=== PATIENT | male | born 1985 | race Caucasian/White ===

== ENCOUNTER 2021-11-03 14:39 | Emergency (ER) | payer OTHER ==
[2021-11-03 15:07] VITALS: TEMP 98; BMI 27.5
[2021-11-03] MEDS ORDERED: SODIUM CHLORIDE 0.9% 1000 ML INFUS.BAG IV ONE (15:17)
[2021-11-03] MEDS ORDERED: FAMOTIDINE 20 MG/50 ML IVPB 20 MG/50 ML MG IVPB ONE ×2 (15:17→15:36)
[2021-11-03] MEDS ORDERED: ACETAMINOPHEN 1000 MG/100 ML VIAL IVPB ONE (15:17)
[2021-11-03] MEDS ORDERED: ACETAMINOPHEN INJECTION 100 ML IVPB ONE (15:36)
[2021-11-03 16:22] LABS: BILIRUBIN,TOTAL 0.5 mg/dl (0.2-1); CALCIUM 9.4 mg/dl (8.5-10); CREATININE 0.9 mg/dl (0.55-1.3); MAGNESIUM 1.9 mg/dL (1.8-2.4)
[2021-11-03 17:20] VITALS: BP 120/70; PULSE 75
[2021-11-03 17:44] LABS: BASO % 0.5 % (0-2.0); EOS % 1.1 % (0-4.5); HEMATOCRIT 42.7 % (35.4-49); LYMPH % 21.3 % (8-40); MCH 29.7 pg (25.7-33.7); MCHC 35.2 g/dl (32.0-35.9); MEAN CELL VOLUME 84.2 fl (80-96); MEAN PLT VOLUME 7.4 fl (7.5-11.1); MONO % 10.5 % (3.8-10.2); NEUT % 66.6 % (42.8-82.8); PLATELET COUNT 237 10^3/uL (134-434); RBC 5.06 M/mm3 (4.00-5.60); RDW 12.2 % (11.9-15.9); WHITE BLOOD COUNT 6.6 K/mm3 (4.0-10.0)
== END 2021-11-03 18:25 | disposition home or self-care (01) ==
LOC: FER 14:39
PROC: 3E033GC Introduction of Other Therapeutic Substance into Peripheral Vein, Percutaneous Approach (ICD-10-PCS; principal; 2021-11-03)
DX: R07.9 Chest pain, unspecified (principal)
CPT/HCPCS: 36415; 71046-TC-FY; 80053; 82550; 83735; 84484; 85025; 87804; 93005; 99285-25; C9803; J0131; U0003; U0005

== ENCOUNTER 2023-03-12 09:50 | Emergency (ER) | payer OTHER ==
[2023-03-12] MEDS ORDERED: ACETAMINOPHEN 1000 MG/100 ML BAG IVPB ONE (10:08)
[2023-03-12] MEDS ORDERED: ONDANSETRON 4 MG/2 ML VIAL IVPUSH ONE (10:08)
[2023-03-12] MEDS ORDERED: SODIUM CHLORIDE 0.9% 1000 ML INFUS.BAG IV ONE (10:08)
[2023-03-12] MEDS ORDERED: ONDANSETRON 4 MG/2 ML VIAL ONE (10:09)
[2023-03-12] MEDS ORDERED: ACETAMINOPHEN INJECTION 100 ML IVPB ONE (10:09)
[2023-03-12] MEDS ORDERED: MECLIZINE HCL 25 MG TABLET (FP) PO ONE (10:35)
[2023-03-12] MEDS ORDERED: MECLIZINE HCL 25 MG TABLET (FP) ONE (10:37)
[2023-03-12 10:59] LABS: HEMATOCRIT 45.3 % (35.4-49); HEMOGLOBIN 15.4 G/dL (11.7-16.9); MCH 29.9 pg (25.7-33.7); MEAN CELL VOLUME 88.1 fl (80-96); MEAN PLT VOLUME 11.4 fl (7.5-11.1); PLATELET COUNT 162.7 10^3/uL (134-434); RBC 5.14 10^6/uL (4.00-5.60); RDW 13.5 % (11.9-15.9); WHITE BLOOD COUNT 7.1 10^3/uL (4.0-10.8)
[2023-03-12 11:03] LABS: ALBUMIN 4.5 g/dl (3.4-5.0); BILIRUBIN,TOTAL 1.1 mg/dl (0.2-1); CALCIUM 9.6 mg/dl (8.5-10); TOT PROT 7.4 g/dl (6.4-8.2)
[2023-03-12 11:11] VITALS: BP 133/86; PULSE 68; RESP 18; TEMP 97.4; BMI 24.8
[2023-03-12] MEDS ORDERED: LORazepam 2 MG/ML SDV VIAL IVPB ONE (11:45)
== END 2023-03-12 13:57 | disposition home or self-care (01) ==
LOC: FER 09:50
PROC: 3E033GC Introduction of Other Therapeutic Substance into Peripheral Vein, Percutaneous Approach (ICD-10-PCS; principal; 2023-03-12)
DX: R42 Dizziness and giddiness (principal); R11.2 Nausea with vomiting, unspecified
CPT/HCPCS: 36415; 80053; 85027; 99284-25

== ENCOUNTER 2025-03-17 11:22 | Emergency (ER) | payer OTHER ==
[2025-03-17 11:26] VITALS: BP 158/83; PULSE 95; RESP 15; TEMP 98.7; BMI 25.0
== END 2025-03-17 12:31 | disposition home or self-care (01) ==
LOC: FER 11:22
DX: K64.9 Unspecified hemorrhoids (principal)
CPT/HCPCS: 99283-25